=== PATIENT | male | born 1955 | race Caucasian/White ===

== ENCOUNTER 2016-11-14 19:31 | Emergency (ER) | payer OTHER ==
[2016-11-14 19:36] VITALS: TEMP 98.2
--- NOTE | 2016-11-14 20:34 | EDPHY ---
H & P Stated Complaint: headache and nausea Time Seen by Provider: 11/14/16 20:13 HPI/ROS: CHIEF COMPLAINT: Nausea and headache HISTORY OF PRESENT ILLNESS: The patient is an anticoagulated (Xarelto) 61 y/o male with h/o PE arriving with family complaining of a headache and nausea. Yesterday the patient flew from [facility] to [place] and while deplaning he hit his head on the overhead bin. He had no symptoms at the time. The patient slept five hours last night before getting on a plane from [place] to come to [place]. He began experiencing a headache while still in flight and half an hour after he deplaned he began feeling nauseated. He describes the pain as centralized to the middle of his forehead and moderate. He ate and drank normally today. Decreased sleep recently. He denies dizziness or any other associated symptoms. He denies any recent cough, cold, or fever. He has a history of PE twice, hypertension, and hypercholesteremia. He took an antihistamine (Daily) but experienced no improvement. No OTC pain meds. REVIEW OF SYSTEMS: A 10 point review of systems was performed and is negative with the exception of the elements mentioned in the history of present illness. - Personal History Current Tetanus/Diphtheria Vaccine: No - Medical/Surgical History PMH: 1. PE x2 2. DVT 3. Melanoma 4. Hypertension 5. Hypercholesteremia Hx Asthma: No Hx Chronic Respiratory Disease: No Hx Diabetes: No Hx Cardiac Disease: No Hx Renal Disease: No Hx Cirrhosis: No Hx Alcoholism: No Hx HIV/AIDS: No Hx Splenectomy or Spleen Trauma: No Other PMH: DVT, bilateral PEs - Social History Smoking Status: Never smoked Additional Social History: From [place], arrived in [place] today, accompanied by family. - Physical Exam Exam: General Appearance: Alert, no distress, smiling and joking Eyes: Pupils equal and round, no conjunctival pallor or injection, EOMI ENT, Mouth: Mucous membranes moist Neck: Normal inspection Respiratory: Lungs are clear to auscultation Cardiovascular: Regular rate and rhythm Gastrointestinal: Abdomen is soft and non-tender Neurological: A&O, CN II-XII intact, motor/sensory intact, gait normal Skin: Warm and dry, no rash Extremities: Nontender, no pedal edema Psychiatric: Mood and affect normal Constitutional: Initial Vital Signs Temperature (C) 36.8 C 11/14/16 19:33 Heart Rate 60 11/14/16 19:33 Respiratory Rate 18 11/14/16 19:33 Blood Pressure 161/90 H 11/14/16 19:33 O2 Sat (%) 96 11/14/16 19:33 O2 Delivery Mode Room Air Allergies/Adverse Reactions: No Known Allergies Allergy (Unverified 11/14/16 19:36) Home Medications: Medication Instructions Recorded HCTZ (*) 11/14/16 Xarelto 15mg (*) 11/14/16 Medical Decision Making - Diagnostics Imaging Results: CT head: no acute findings Imaging: Discussed imaging studies w/ house calls nurse practitioner Radiologist ED Course/Re-evaluation: The patient is an anticoagulated 62 y/o male from [place] arriving with nausea and headache. Neurologic exam is normal. He hit his head yesterday but was asymptomatic until this afternoon. Due to his anticoagulated status and his recent [place] to a [place], he will be evaluated for ICH secondary to closed head injury. I do not suspect meningitis or subarachnoid hemorrhage in this patient. Reglan, Benadryl and Decadron IV given. 21:[address] Lyle, radiologist. CT negative for acute processes. 10:40pm--feels much better, ALEX mild 2/10, wants to go home. Neurologic exam remains normal. There is no evidence of serious etiology for his headache, and may be due to lack of sleep and high-altitude. Headache precautions given. Differential Diagnosis: Headache including but not limited to subarachnoid hemorrhage, migraine headache , tension headache and infectious causes such as meningitis, pharyngitis and sinusitis. - Data Points Laboratory Results: Laboratory Results 11/14/16 20:04 11/14/16 20:04 Medications Given: Discontinued Medications Dexamethasone (Decadron Injection) 10 mg IVP EDNOW ONE Stop: 11/14/16 20:41 Last Admin: 11/14/16 20:51 Dose: 10 mg Diphenhydramine HCl (Benadryl Injection) 25 mg IVP EDNOW ONE Stop: 11/14/16 20:41 Last Admin: 11/14/16 20:51 Dose: 25 mg Metoclopramide HCl (Reglan Injection) 10 mg IVP EDNOW ONE Stop: 11/14/16 20:41 Last Admin: 11/14/16 20:51 Dose: 10 mg Departure - Departure Disposition: Home, Routine, Self-Care Clinical Impression: Headache Qualifiers: Headache type: tension-type Headache chronicity pattern: acute headache Intractability: not intractable Qualified Code(s): G44.209 - Tension-type headache, unspecified, not intractable Condition: Good Instructions: Acute Headache (ED) Additional Instructions: Take Tylenol as needed for headache. Return for persistent headache, fever, vomiting, any concerns. Referrals: [facility] [Other] - As per Instructions Physician Review and Approval Statement: 11/14/16 20:37 Portions of this note were transcribed by a medical case worker. I personally performed a history, physical exam, medical decision making, and confirmed accuracy of information the transcribed note.
[2016-11-14] MEDS ORDERED: METOCLOPRAMIDE 10 MG/2 ML VIAL IVP ONE (20:40)
[2016-11-14] MEDS ORDERED: DEXAMETHASONE 10 MG/ML VIAL IVP ONE (20:40)
[2016-11-14 20:47] LABS: % IMMATURE GRANULYOCYTES 0.3 % (0.0-1.1); ABSOLUTE IMMATURE GRANULOCYTES 0.02 10^3/uL (0.00-0.10); ADD DIFF? NO; ADD MORPH? NO; ADD SCAN? NO; ATYPICAL LYMPHOCYTE FLAG 0 (0-99); FRAGMENT RBC FLAG 0 (0-99); HEMATOCRIT 41.1 % (40.0-51.0); HEMOGLOBIN 13.9 g/dL (13.7-17.5); LEFT SHIFT FLG 0 (0-99); LIPEMIA HEMOLYSIS FLAG 90 (0-99); MEAN CELL HEMOGLOBIN 31.7 pg (27.9-34.1); MEAN CELL HEMOGLOBIN CONCENTR. 33.8 g/dL (32.4-36.7); MEAN CELL VOLUME 93.8 fL (81.5-99.8); MEAN PLATELET VOLUME 10.8 fL (8.7-11.7); PLATELET CLUMPS FLAG 0 (0-99); PLATELET COUNT 200 10^3/uL (150-400); RED BLOOD CELL COUNT 4.38 10^6/uL (4.40-6.38); RED CELL DISTRIBUTION WIDTH 12.5 % (11.5-15.2)
[2016-11-14 20:48] LABS: ANION GAP 7 mEq/L (8-16); CALCIUM 9.4 mg/dL (8.5-10.4); CARBON DIOXIDE 29 mEq/l (22-31); CHLORIDE 99 mEq/L (97-110); CREATININE 1.1 mg/dL (0.7-1.3); GLOMERULAR FILTRATION RATE > 60; GLUCOSE 83 mg/dL (70-100); POTASSIUM 3.6 mEq/L (3.5-5.2); SODIUM 135 mEq/L (134-144)
[2016-11-14 22:45] VITALS: BP 130/88; PULSE 68; RESP 16; O2SAT 93
== END 2016-11-14 22:45 | disposition home or self-care (01) ==
DX: G44.209 Tension-type headache, unspecified, not intractable (principal); I10 Essential (primary) hypertension; Z79.01 Long term (current) use of anticoagulants; Z85.820 Personal history of malignant melanoma of skin
CPT/HCPCS: 96374; J1100; J1200; J2765